=== PATIENT | male | born 1950 | race Caucasian/White ===

== ENCOUNTER → 2019-04-15 | Outpatient (CLI) | payer OTHER ==
--- NOTE | 2019-04-15 15:12 | CARDNUC ---
[place] [address] CARDIAC NUCLEAR IMAGING REPORT Name: DAVID BHATIA Room: [facility]#: [id number] Admission: 04/15/19 Attend Phys: Roscoe Echeverria Discharge: Date of : 54 Date of Service: 04/15/19 1511 Report #: [id number] THIS REPORT FOR: //name// APPROVED REPORT Study performed: 04/15/2019 09:42:54 Exam: Nuclear Stress Test Indication: Increased Coronary Artery Calcium Scores, Palpitations, ABN Heart Rhythm. Patient Location: Out-Patient Stress Tech: Elaina Mccollum Stress Nurse: Samantha Parnell R.N. Ht: 5 ft 10 in Wt: 197 lbs BSA: 2.07 m2 BMI: 28.26 Medical History Medical History: Arrhythmia, HTN, Palpitations, Increased Coronary Artery Calcium Scores, ABN Heart Rhythm. Medications: Eliquis, Diltiazem, Lisinopril. Allergies: No known drug allergies Cardiac Risk Factors: Age, FHX of CAD, HTN, Past Smoker, Increase Coronary Artery Calcium Scores. Previous Cardiac Procedures: New Cardiac Medications for abnormal heart rhythm. Pretest Chest Pain Characteristics: No chest pain Exercise History: Indeterminate Physical Disabilities: Hips Meds Held (24 hrs): None Stress Test Details Stress Test: Exercise stress testing was performed using a Alvin protocol. HR Resting HR: 62 bpm Max Heart Rate (APMHR): 154 bpm Max HR Achieved: 140 bpm Target HR (85% APMHR): 130 bpm % of APMHR: 90 Recovery HR: 83 bpm BP Resting BP: 143/82 mmHg Max BP: 200/[place] [address] CARDIAC NUCLEAR IMAGING REPORT Name: DAVID BHATIA Room: [facility]#: [id number] Admission: 04/15/19 Attend Phys: Roscoe Echeverria Discharge: Date of : 54 Date of Service: 04/15/19 1511 Report #: [id number] Resting ECG: Sinus Rhythm Stress ECG: Sinus Tachycardia ST Change: None Arrhythmia: None Recovery ECG: Sinus Rhythm Recovery ST Change: None Recovery Arrhythmia: None Clinical Reason for Termination: Completed protoco, Target HR achieved, Patient Request Stress Symptoms: Fatigue, Dyspnea Exercise duration: 5 min 54 sec Exercise capacity: 7.05 METs Overall Exercise Capacity for Age: Reduced Patient tolerated Alvin protocol exercise without significant cardiac symptoms. Nurse Comments 68 year old male presented with report of an increased coronary artery calcium score, palpitations and ABN heart rhythm. Patient tolerated Alvin Protocol Nuclear Medicine stress test. Recovery unremarkable. Patient escorted by staff to Nuclear Medicine for images. Patient was stable with no complaints at that time. Stress ECG Conclusion The baseline 12-lead EKG shows sinus rhythm without significant ST or T wave abnormality. EKGs obtained during and post exercise showed sinus rhythm and sinus tachycardia with no significant ST or T wave changes when to baseline. There were no stress-induced arrhythmias. NM EXAM: Myocardial Perfusion REST/STRESS Imaging Protocol: Rest Tc-99m/Stress Tc-99m 1 day Resting Data Rest SPECT myocardial perfusion imaging was performed in supine position 30 minutes following the intravenous injection of 10.9 mCi of Tc-99m Sestamibi. Time of rest injection: 08:05 The images were gated to evaluate regional wall motion and calculate left ventricular ejection fraction. Administration Route: IV Administration Site: Right [place] [address] CARDIAC NUCLEAR IMAGING REPORT Name: MELITAHAYDEEDAVID Room: [facility]#: [id number] Admission: 04/15/19 Attend Phys: Roscoe Echeverria Discharge: Date of : 54 Date of Service: 04/15/19 1511 Report #: [id number] At peak stress, the patient was injected intravenously with 33.8mCi of Tc-99m Sestamibi. Time of stress injection: 09:55 Administration Route: IV Administration Site: Right Hand Heart Rate at time of stress injection: 140 bpm. Gated Stress SPECT was performed 30 minutes after stress injection. The images were gated to evaluate regional wall motion and calculate left ventricular ejection fraction. Prone imaging was performed. Study Quality Study: Good Artifact: Mild Diaphragmatic artifact Study Data At rest, the left ventricular ejection fraction was 84%.. Post stress, the left ventricular ejection was 75%.. TID = 1.13. Perfusion There is mild photopenia of the inferior wall on resting images that is less pronounced on stress images. Wall motion in this region is normal suggesting diaphragmatic attenuation artifact. No other defects were seen. Wall Motion Normal left ventricular wall motion. Nuclear Conclusion ECG Findings: negative for ischemia Clinical Findings: negative for ischemia Nuclear Findings: negative for ischemia Exercise Capacity: limited Left Ventricular Function: normal Risk Study: low Myocardial perfusion images show no defect that would suggest infarct or ischemia. Left ventricular systolic function appears normal on gated studies. This is a low risk study. <Conclusion> The baseline 12-lead EKG shows sinus rhythm without significant ST or T wave abnormality. EKGs obtained during and [place] [address] CARDIAC NUCLEAR IMAGING REPORT Name: DAVID BHATIA Room: [facility]#: [id number] Admission: 04/15/19 Attend Phys: Roscoe Echeverria Discharge: Date of : 54 Date of Service: 04/15/19 1511 Report #: [id number] sinus rhythm and sinus tachycardia with no significant ST or T wave changes when to baseline. There were no stress-induced arrhythmias. <ELECTRONICALLY SIGNED> By: Tigre Berrios MD, FACC 04/15/19 1511 151 [id number] Tigre Berrios MD, FAC /INF
== END ==
LOC: M.NUC 04-03 15:17
DX: R93.1 Abnormal findings on diagnostic imaging of heart and coronary circulation (principal); I10 Essential (primary) hypertension; Z79.899 Other long term (current) drug therapy

== ENCOUNTER → 2019-05-15 | Outpatient (CLI) | payer OTHER ==
[2019-05-15 08:22] LABS: ALBUMIN 4.1 g/dL (3.4-5.0); ALKALINE PHOSPHATASE 87 U/L (46-116); ANION GAP 8 mmol/L (7-16); BUN 12 mg/dL (7-18); CALCIUM 9.8 mg/dL (8.5-10.1); CHLORIDE 105 mmol/L (98-107); CHOLESTEROL 160 mg/dL (<200); CO2 32 mmol/L (21-32); CREATININE 0.9 mg/dL (0.6-1.3); GLUCOSE 97 mg/dL (70-99); HDL CHOLESTEROL 37 mg/dL (>40); LDL CHOLESTEROL 108 mg/dL (<100); POTASSIUM 4.3 mmol/L (3.5-5.1); SGOT 21 U/L (15-37); SGPT 41 U/L (30-65); SODIUM 145 mmol/L (136-145); TC:HDL 4.3 Ratio (Not establshd); TOTAL PROTEIN 8.2 g/dL (6.4-8.2); TRIGLYCERIDE 77 mg/dL (<150); VLDL 15 mg/dL (<40)
[2019-05-15 08:53] LABS: SERUM ASSESSMENT Clear
== END ==
LOC: M.LAB 07:43
PROVIDERS: Registered Nurse
DX: E78.49 Other hyperlipidemia (principal); I10 Essential (primary) hypertension

== ENCOUNTER → 2020-02-10 | Outpatient (CLI) | payer MEDICARE | LOC: M.RAD 14:32 | PROVIDERS: ATTEND Nurse Practitioner | DX: R06.02 Shortness of breath (principal) ==